=== PATIENT | male | born 1955 | race Caucasian/White ===

== ENCOUNTER 2017-11-12 13:22 | Day surgery (SDC) | payer OTHER ==
[~2017-11-12] VITALS: Ht 182.9 cm; Wt 82.2 kg
[2017-11-12] VITALS (10 sets, daily range): BP systolic 123–156; BP diastolic 58–86; PULSE 58–89; RESP 12–18; Ht 182.9 cm; Wt 82.2 kg
[~2017-11-12 13:22] MED LIST: LACTATED RINGER'S 1,000 ML IV* SCH
[2017-11-12] MEDS ORDERED: BENA40TA41 PO (13:43)
[2017-11-12] MEDS ORDERED: HYDR-906 PO (13:45)
--- NOTE | 2017-11-12 14:50 | HPN ---
Date/Time of Note Date/Time of Note DATE: 11/12/17 TIME: 14:50 Interval H&P Admission Note Pt. seen H&P reviewed: No system changes ANURADHA FIGUEROA Nov 12, 2017 14:50
[2017-11-12] MEDS ORDERED: MIDAZOLAM 1 MG/ML 2 ML INJ ONE (14:54)
[2017-11-12] MEDS ORDERED: ROPIVACAINE 0.5 % 30 ML VIAL ONE (14:54)
[2017-11-12] MEDS ORDERED: PROPOFOL 20 ML ONE (15:50)
[2017-11-12] MEDS ORDERED: CEFAZOLIN 1 GM INJ ONE (15:50)
[2017-11-12] MEDS ORDERED: LIDOCAINE 2% (SDV) 5 ML INJ ONE (15:50)
[2017-11-12] MEDS ORDERED: SUCCINYLCHOLINE CHLORIDE 100 MG/5 ML SYG IV ONE (15:50)
[2017-11-12] MEDS ORDERED: ROCURONIUM 50 MG INJ ONE (15:50)
[2017-11-12] MEDS ORDERED: SUGAMMADEX SODIUM 200 MG/2 ML VIAL IV ONE (15:51)
[2017-11-12] MEDS ORDERED: VANCOMYCIN 1 GM (PMX) 250 ML ONE (16:53)
--- NOTE | 2017-11-12 17:29 | OPPN ---
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 Right wrist radial styloidectomy for radiocarpal osteoarthritis. 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
[2017-11-12] MEDS ORDERED: FENTAnyl 50 MCG/ML VIAL IV PRN (19:00)
--- NOTE | 2017-11-12 21:30 | RADRPT ---
PROCEDURE: Intraoperative imaging of the right wrist with fluoroscopy. CLINICAL INDICATION: Right wrist pain. Intraoperative. TECHNIQUE: Images of the right wrist were obtained in the operating room with an image intensifier . No radiologist was in attendance. Fluoroscopy time is 11.7 seconds and 12 images were obtained. COMPARISON: No prior study is available for comparison. FINDINGS: Images demonstrate surgical instruments overlying the right wrist and fusion of the carpal bones wit h a plate and multiple screws. IMPRESSION: 1. Intraoperative imaging of the right wrist. RPTAT: QQ .Dionicio Warren MD, MD Date Time Electronically viewed and signed by .Dionicio Warren MD, on 11/12/2017 21:29 .R/
--- NOTE | 2017-11-13 14:48 | OPR ---
DATE OF OPERATION: 11/12/2017 SURGEON: Tre Mac MD ANESTHESIA: Peripheral nerve block plus general. PREOPERATIVE DIAGNOSES: 1. Failed right wrist 4 corner fusion. 2. Right radiocarpal osteoarthritis at the radial styloid. 3. Chronic right wrist pain. POSTOPERATIVE DIAGNOSES: 1. Failed right wrist 4 corner fusion. 2. Right radiocarpal osteoarthritis at the radial styloid. 3. Chronic right wrist pain. PROCEDURE: 1. Revision 4 corner fusion of the right wrist/hand with plate and screw fixation with application of bone allograft. 2. Right wrist radial styloidectomy for osteoarthritis. 3. Posterior interosseous nerve neurectomy. OPERATIVE FINDINGS: 1. 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 2. Osteoarthritis at the radial styloid at the radial carpal joint. INDICATION: This is a 62-year-old male with previous 4 corner fusion surgery, which had subsequent infection and went on to nonunion. He had persistent pain in failed conservative management including injections. He also had pain on the radial aspect of the wrist and his trapezium was impacting against the radial side of the wrist. He also had some mild arthritis at the radial styloid. Given this impaction on the radial side of the wrist, he also elected to proceed with radial styloidectomy. We also discussed posterior interosseous nerve neurectomy to give him some pain relief from the wrist enervation. He elected to proceed with these procedures understanding the risks and benefits. OPERATIVE PROCEDURE: Patient was seen in the preoperative area. All further questions were answered. Again, he gave informed consent understanding risks and benefits. He has taken to the operative suite and placed in the supine position. A peripheral nerve block was performed at my request and the patient was then placed under general anesthesia. Ancef 2 grams IV given and right upper extremity was prepped with ChloraPrep stick and draped in usual sterile fashion. The previous dorsal longitudinal incision was utilized with sharp dissection carried down through skin and subcutaneous tissue. The EPL tendon was dissected free and retracted radially and the 4th dorsal compartment were retracted ulnarly. The posterior interosseous nerve was identified and was transected proximal to the wrist joint with a 4 cm segment of the posterior interosseous nerve excised. A longitudinal dorsal capsulotomy was made and elevated off of the carpal bones. The previous area 4 corner fusion was inspected at the lunate, capitate, hamate and triquetrum. There was motion of the lunate and obvious nonunion. The area was debrided with a rongeur and prepared for a 4 corner fusion. A reamer for the [employer] dorsal four-corner fusion plate was used to create a dorsal defect for the plate to sit flush with the bone. After the area was prepared a [employer] 4 corner fusion plate was applied and cortical screws were placed into each of the 4 bones. X-ray imaging showed appropriate hardware placement and bony alignment. Additional screws were placed to fill up the 4 corner fusion plate and secure all 4 of the bones. I was pleased with the stability of the bones after the plate and screw fixation. Janice bone allograft was applied into the fusion site and x-ray imaging showed appropriate hardware placement and bony alignment. Attention was then turned to the radial styloidectomy. Please note that prior to placing the bone graft the wound was copiously irrigated with 1 L of saline. A separate incision was made radially for the radial styloidectomy and sharp dissection carried down through skin and subcutaneous tissue. Scissor dissection was used to safely dissect away the radial sensory nerve and 1st dorsal compartment tendons and the radial styloid was visualized. A capsulotomy was made at the distal aspect of the styloid and the distal 5 mm of the radial styloid was removed using a rongeur. I created a smooth bony surface on the radial styloid and final x-ray imaging showed interval removal of the radial styloid tip. That portion of the wound was copiously irrigated and the skin closed with 4-0 nylon. The dorsal capsule was closed Monocryl and the skin was then closed with 4-0 nylon. Xeroform was placed over the wounds followed by sterile gauze, Webril, and a short-arm splint. Tourniquet deflated after 90 minutes and patient was awakened from anesthesia. He was taken to the postoperative suite in stable condition. Tolerated procedure well without complication. Please note that 1 gram of vancomycin was also given at the end of the procedure. SPECIMENS: None. ESTIMATED BLOOD LOSS: 5 mL. COUNTS: Sponge, instrument, and needle counts correct. TOURNIQUET TIME: 90 minutes. CONDITION ON DISCHARGE: Stable. Dictated By: Tre Mac MD /cathi/lina /Document#: [id number] MTDD
== END 2017-11-12 19:03 | disposition home or self-care (01) ==
LOC: SDS 13:22
PROVIDERS: ATTEND Orthopaedic Surgery Hand Surgery
DX: T84.84XA Pain due to internal orthopedic prosthetic devices, implants and grafts, initial encounter (principal); Y83.8 Other surgical procedures as the cause of abnormal reaction of the patient, or of later complication, without mention of misadventure at the time of the procedure; M19.031 Primary osteoarthritis, right wrist; I10 Essential (primary) hypertension
CPT/HCPCS: 25230; 25999; 64782; 73110; J0690; J2250; J2795; J3370